=== PATIENT | female | born 1995 | race Caucasian/White ===

== ENCOUNTER 2016-10-27 19:19 | Emergency (ER) | payer SELFPAY ==
[2013-11-15 09:00] VITALS: BMI 35.6
[~2016-10-27 19:19] MED LIST: ADVAIR 100/501 DISK INH; NORCO 10/325 TA1 TA1 PO; ORTHO TRI-7 DAYSX 3 PO; ULTRAM50 MG PO; ZOLOFT50 MG PO
[2016-10-27 19:48] LABS: BASOPHILS 0.2 % (0.0-2.0); EOSINOPHILS 1.4 % (0-7); HEMATOCRIT 41.5 % (36.0-48.0); HEMOGLOBIN 13.9 g/dL (12-16); IMMATURE GRANULOCYTES 0.4 % (0-5); LYMPHOCYTES 15.9 % (15-50); MCH 29.1 pg (26.0-34.0); MCHC 33.5 g/dL (31.0-37.0); MCV 86.8 fL (80.0-100.0); NEUTROPHILS 76.1 % (40-80); PLATELET COUNT 339 10x3/uL (130-400); RBC 4.78 10x6/uL (4.00-5.40); RDW 13.2 % (11.5-14.5); WBC 13.4 10x3/uL (4.8-10.8)
== END 2016-10-27 22:48 | disposition home or self-care (01) ==
LOC: D.ER 19:19
PROVIDERS: Emergency Medicine
DX: E11.649 Type 2 diabetes mellitus with hypoglycemia without coma (principal); F41.9 Anxiety disorder, unspecified; J45.909 Unspecified asthma, uncomplicated; F32.9 Major depressive disorder, single episode, unspecified

== ENCOUNTER 2017-01-27 08:52 | Emergency (ER) | payer SELFPAY ==
[2013-11-15 09:00] VITALS: BMI 35.6
[2017-01-27 09:56] LABS: HCG URINE NEGATIVE (NEGATIVE)
[2017-01-27 10:04] LABS: APPEARANCE CLOUDY (CLEAR); BILIRUBIN NEGATIVE (NEGATIVE); COLOR YELLOW (YELLOW); GLUCOSE NEGATIVE (NEGATIVE); KETONE NEGATIVE (NEGATIVE); LEUKOCYTE ESTERASE TRACE (NEGATIVE); NITRITE NEGATIVE (NEGATIVE); PROTEIN NEGATIVE (NEGATIVE); SPECIFIC GRAVITY 1.025 (1.005-1.020); UROBILINOGEN NORMAL (NORMAL)
[2017-01-27 10:05] LABS: BACTERIA MODERATE /hpf (NONE SEEN); MUCUS <1+ /lpf (NONE SEEN); RED CELLS - URINE RARE /hpf (0-5); WHITE CELLS - URINE 0-5 /hpf (0-5)
== END 2017-01-27 11:29 | disposition home or self-care (01) ==
LOC: D.ER 08:52
PROVIDERS: Emergency Medicine
DX: M48.36 Traumatic spondylopathy, lumbar region (principal)

== ENCOUNTER 2019-08-24 19:33 | Emergency (ER) | payer MEDICAID ==
[~2019-08-24] VITALS: Ht 162.6 cm; Wt 84.1 kg
[2019-08-24 19:54] VITALS: BP 117/71; Ht 162.6 cm; Wt 84.1 kg
[2019-08-24] MEDS ORDERED: CLEOCIN HCL300 MG PO (21:34)
== END 2019-08-24 22:10 | disposition home or self-care (01) ==
LOC: D.ER 19:33
DX: L02.11 Cutaneous abscess of neck (principal); L02.91 Cutaneous abscess, unspecified